=== PATIENT | female | born 1940 | race African-American/Black ===

== ENCOUNTER 2017-08-29 12:45 | Emergency (ER) | payer MEDICARE ==
[~2017-08-29] VITALS: Ht 162.6 cm; Wt 48.0 kg
[~2017-08-29 12:45] MED LIST: ADVAIR; AMLODIPINE; CLARITIN; DIOVAN; FLONASE; LIPITOR; ZOLOFT
[2017-08-29] MEDS ORDERED: ACETAMINOPHEN 325MG TABLET PO STA (15:25)
[2017-08-29 16:41] LABS: BASOPHILS % 0.8 % (0.0-2.0); EOSINOPHILS % 2.3 % (0.0-5.0); HEMATOCRIT. 34.8 % (36.0-48.0); HEMOGLOBIN. 11.7 g/dL (12.0-16.0); LYMPHOCYTES % 19.6 % (20.0-50.0); MEAN CORPUSCULAR HEMOGLOBIN 28.4 pg (28.0-32.0); MEAN CORPUSCULAR VOLUME 84.4 fL (81.0-99.0); MONOCYTES % 10.8 % (2.0-8.0); NEUTROPHILS % 66.5 % (40.0-76.0); PLATELET 294 x1000/uL (130-400); RED BLOOD CELL COUNT 4.12 mill/uL (4.2-5.4); RED CELL DISTRIBUTION WIDTH 14.2 % (11.6-14.6)
[2017-08-29 16:44] LABS: CHLORIDE 97 mEq/L (98-107)
[2017-08-29 16:45] LABS: INR 1.1; PROTHROMBIN TIME 11.6 sec (9.4-11.6)
[2017-08-29 16:53] LABS: CLARITY URINE CLEAR (CLEAR); COLOR URINE YELLOW (YELLOW); KETONES URINE NEGATIVE (NEGATIVE); LEUKOCYTE ESTERASE URINE NEGATIVE (NEGATIVE); NITRITE URINE NEGATIVE (NEGATIVE); OCCULT BLOOD URINE NEGATIVE (NEGATIVE); PROTEIN URINE NEGATIVE (NEGATIVE); SPECIFIC GRAVITY URINE 1.005 (1.005-1.030); UROBILINOGEN URINE 0.2 E.U./dL (0.2-1.0)
[2017-08-29] MEDS ORDERED: POTASSIUM CHLORIDE 20MEQ TABLET SR PO ONE (20:15)
[2017-08-29 21:15] VITALS: BP 146/67
== END 2017-08-29 21:20 | disposition home or self-care (01) ==
LOC: ER 13:41
DX: H92.01 Otalgia, right ear (principal); R51 Headache; R00.1 Bradycardia, unspecified; E87.6 Hypokalemia; J32.9 Chronic sinusitis, unspecified; J45.909 Unspecified asthma, uncomplicated; I10 Essential (primary) hypertension; E78.00 Pure hypercholesterolemia, unspecified
CPT/HCPCS: 36415; 70450; 71045; 80053; 81003; 85025; 85610; 93005; 99285

== ENCOUNTER 2018-03-07 17:37 | Inpatient (IN) | payer MEDICARE ==
[~2018-03-07] VITALS: Ht 162.6 cm; Wt 44.5 kg
[2018-03-07 20:35] LABS: HEMATOCRIT. 36.6 % (36.0-48.0); HEMOGLOBIN. 12.5 g/dL (12.0-16.0); MEAN CORPUSCULAR HEMOGLOBIN 29.3 pg (28.0-32.0); MEAN CORPUSCULAR VOLUME 85.7 fL (81.0-99.0); MEAN PLATELET VOLUME 7.6 fl (7.4-10.4); PLATELET 291 x1000/uL (130-400); RED BLOOD CELL COUNT 4.27 mill/uL (4.2-5.4); RED CELL DISTRIBUTION WIDTH 13.7 % (11.6-14.6)
[2018-03-07 20:37] LABS: CLARITY URINE CLEAR (CLEAR); COLOR URINE YELLOW (YELLOW); KETONES URINE NEGATIVE (NEGATIVE); LEUKOCYTE ESTERASE URINE NEGATIVE (NEGATIVE); NITRITE URINE NEGATIVE (NEGATIVE); OCCULT BLOOD URINE NEGATIVE (NEGATIVE); PROTEIN URINE 2+ (NEGATIVE); SPECIFIC GRAVITY URINE 1.007 (1.005-1.030); UROBILINOGEN URINE 0.2 E.U./dL (0.2-1.0)
[2018-03-07 20:38] LABS: CHLORIDE 85 mEq/L (98-107)
[2018-03-07] MEDS ORDERED: POTASSIUM CHLORIDE 20MEQ/PACKET PO ONE (20:45)
[2018-03-07] MEDS ORDERED: POTASSIUM CHLORIDE INJ 40 MEQ in DEXT 5% WATER 250 ML IV ONE (20:45)
[2018-03-07 21:39] LABS: PLATELET ESTIMATE NORMAL
[2018-03-08 02:08] VITALS: BP 165/74
[2018-03-08] MEDS ORDERED: LOSARTAN POTASSIUM 50 MG TABLET PO SCH (02:45)
[2018-03-08] MEDS ORDERED: DOCUSATE SODIUM 100MG CAPSULE PO PRN (02:45)
[2018-03-08] MEDS ORDERED: ACETAMINOPHEN 325MG TABLET PO PRN (02:45)
[2018-03-08] MEDS ORDERED: CLONIDINE 0.1MG TABLET PO PRN (02:45)
[2018-03-08] MEDS ORDERED: IPRATROPIUM/ALBUTEROL 0.5-3(2.5)MG/3ML NEB INH PRN (02:45)
[2018-03-08] MEDS ORDERED: POTASSIUM CHLORIDE 20MEQ TABLET SR PO SCH (03:00)
[2018-03-08] MEDS ORDERED: BUDESONIDE 0.5MG/2ML NEB HHN SCH (03:00)
[2018-03-08 04:00] VITALS: BP 138/51
[2018-03-08] MEDS ORDERED: POTASSIUM CHLORIDE INJ 40 MEQ in DEXT 5% WATER 250 ML IV SCH (04:00)
[2018-03-08] MEDS: SODIUM CHLORIDE 0.9% INJ 3ML FLUSH IVF SCH ×2 (06:08→13:53)
[2018-03-08 08:00] VITALS: BP 158/65
[2018-03-08] MEDS ORDERED: ENOXAPARIN 40MG/0.4ML SYR SUBCUT SCH (09:00)
[2018-03-08] MEDS ORDERED: AMLODIPINE 10MG TABLET PO SCH (09:00)
[2018-03-08 10:53] LABS: BASOPHILS % 0.2 % (0.0-2.0); HEMATOCRIT. 31.9 % (36.0-48.0); HEMOGLOBIN. 10.9 g/dL (12.0-16.0); LYMPHOCYTES % 10.1 % (20.0-50.0); MEAN CORPUSCULAR VOLUME 85.2 fL (81.0-99.0); MONOCYTES % 14.1 % (2.0-8.0); NEUTROPHILS % 75.6 % (40.0-76.0); PLATELET 271 x1000/uL (130-400); RED BLOOD CELL COUNT 3.74 mill/uL (4.2-5.4)
[2018-03-08 10:58] LABS: CHLORIDE 96 mEq/L (98-107)
[2018-03-08 12:00] VITALS: BP 134/43
[2018-03-08 16:00] VITALS: BP 139/55
[2018-03-08 17:42] VITALS: BP 126/88
[2018-03-08] MEDS ORDERED: AMOX-424 MT (17:48)
[2018-03-08] MEDS ORDERED: FLUT9.9S BOTHNSTRLS (17:48)
[2018-03-08] MEDS ORDERED: MED4 MT (17:49)
[2018-03-08] MEDS ORDERED: ATORVASTATIN CALCIUM 40MG TABLET PO SCH (21:00)
== END 2018-03-08 18:33 | disposition home or self-care (01) | DRG 641 ==
LOC: ER 18:25 → 7WST 21:14 → ENRESERV 03-08 00:08
PROVIDERS: ADMIT Ophthalmology; ATTEND Ophthalmology
DX: E87.6 Hypokalemia (principal); J45.901 Unspecified asthma with (acute) exacerbation; R06.1 Stridor; D64.9 Anemia, unspecified; E78.00 Pure hypercholesterolemia, unspecified; E78.5 Hyperlipidemia, unspecified; R09.82 Postnasal drip; F41.9 Anxiety disorder, unspecified; I10 Essential (primary) hypertension; J32.9 Chronic sinusitis, unspecified; J44.9 Chronic obstructive pulmonary disease, unspecified; T50.2X5A Adverse effect of carbonic-anhydrase inhibitors, benzothiadiazides and other diuretics, initial encounter; Y92.89 Other specified places as the place of occurrence of the external cause; Z85.3 Personal history of malignant neoplasm of breast
CPT/HCPCS: 36415; 71045; 80048; 82533; 83735; 84443; 84484; 93005; 94640; 96365; 99285; J1650; J3480; J7060; J7620; J7626

== ENCOUNTER 2018-03-26 14:39 | Emergency (ER) | payer MEDICARE ==
[~2018-03-26] VITALS: Ht 157.5 cm; Wt 45.0 kg
[~2018-03-26 14:39] MED LIST changes: +AMOX-424 MT; +FLUT9.9S BOTHNSTRLS; +MED4 MT
[2018-03-26 14:59] VITALS: BP 113/74
== END 2018-03-26 21:08 | disposition left against medical advice (07) ==
LOC: ER 16:15
DX: Z53.21 Procedure and treatment not carried out due to patient leaving prior to being seen by health care provider (principal)
CPT/HCPCS: 93005

== ENCOUNTER 2018-04-27 19:30 | Emergency (ER) | payer MEDICARE ==
[~2018-04-27] VITALS: Ht 162.6 cm; Wt 45.0 kg
[2018-04-27 22:51] VITALS: BP 201/88
== END 2018-04-28 02:15 | disposition left against medical advice (07) ==
LOC: ER 21:22
DX: Z53.21 Procedure and treatment not carried out due to patient leaving prior to being seen by health care provider (principal)

== ENCOUNTER 2019-02-08 06:23 | Emergency (ER) | payer MEDICARE ==
[~2019-02-08] VITALS: Ht 167.6 cm; Wt 64.0 kg
[2019-02-08] MEDS ORDERED: IPRATROPIUM BROMIDE (0.02%) 0.5MG/2.5ML NEB HHN STA (07:14)
[2019-02-08] MEDS ORDERED: ALBUTEROL (0.083%) 2.5MG/3ML NEB HHN STA (07:14)
[2019-02-08] MEDS ORDERED: METHYLPREDNISOLONE SOD SUCC 125 MG/2 ML VIAL IV STA (07:14)
[2019-02-08 10:14] LABS: BASOPHILS % 0.9 % (0.0-2.0); EOSINOPHILS % 3.4 % (0.0-5.0); HEMATOCRIT. 29.9 % (36.0-48.0); HEMOGLOBIN. 9.9 g/dL (12.0-16.0); LYMPHOCYTES % 16.5 % (20.0-50.0); MEAN CORPUSCULAR HEMOGLOBIN 27.8 pg (28.0-32.0); MEAN CORPUSCULAR VOLUME 83.7 fL (81.0-99.0); MEAN PLATELET VOLUME 7.6 fl (7.4-10.4); MONOCYTES % 4.5 % (2.0-8.0); NEUTROPHILS % 74.7 % (40.0-76.0); PLATELET 256 x1000/uL (130-400); RED BLOOD CELL COUNT 3.57 mill/uL (4.2-5.4); RED CELL DISTRIBUTION WIDTH 13.8 % (11.6-14.6)
[2019-02-08 10:18] LABS: CHLORIDE 92 mEq/L (98-107)
[2019-02-08 15:00] VITALS: BP 136/62
[2019-02-08] MEDS ORDERED: POTASSIUM CHLORIDE 20MEQ TABLET SR PO NR (16:00)
== END 2019-02-08 15:56 ==
LOC: ER 06:23 → CANBEDREQ 12:54 → ER 15:56
DX: J45.901 Unspecified asthma with (acute) exacerbation (principal); I10 Essential (primary) hypertension; E78.5 Hyperlipidemia, unspecified; Z85.3 Personal history of malignant neoplasm of breast; Z79.899 Other long term (current) drug therapy
CPT/HCPCS: 36415; 71045; 80053; 83880; 84484; 85025; 93005; 94644; 96374; 99285; J2930; J7611

== ENCOUNTER 2022-07-29 07:00 | Inpatient (IN) | payer MEDICARE ==
[~2022-07-29] VITALS: Ht 160 cm; Wt 44.2 kg
[2022-07-29 09:01] LABS: CLARITY URINE CLEAR (CLEAR); COLOR URINE YELLOW (YELLOW); KETONES URINE NEGATIVE (NEGATIVE); LEUKOCYTE ESTERASE URINE NEGATIVE (NEGATIVE); NITRITE URINE NEGATIVE (NEGATIVE); OCCULT BLOOD URINE NEGATIVE (NEGATIVE); PH URINE 7.5 (4.5-8.0); PROTEIN URINE 2+ (NEGATIVE); SPECIFIC GRAVITY URINE 1.007 (1.005-1.030); UROBILINOGEN URINE 0.2 E.U./dL (0.2-1.0)
[2022-07-29 09:24] LABS: CHLORIDE 106 mEq/L (98-107)
[2022-07-29 09:26] LABS: BASOPHILS % 0.2 % (0.0-2.0); EOSINOPHILS % 3.9 % (0.0-5.0); HEMATOCRIT. 35.9 % (36.0-48.0); HEMOGLOBIN. 12.1 g/dL (12.0-16.0); LYMPHOCYTES % 17.4 % (20.0-50.0); MEAN CORPUSCULAR HEMOGLOBIN 28.7 pg (28.0-32.0); MEAN CORPUSCULAR VOLUME 85.4 fL (81.0-99.0); MEAN PLATELET VOLUME 8.4 fl (7.4-10.4); MONOCYTES % 8.8 % (2.0-8.0); NEUTROPHILS % 69.7 % (40.0-76.0); PLATELET 313 x1000/uL (130-400); RED CELL DISTRIBUTION WIDTH 15.5 % (11.6-14.6)
[2022-07-29] MEDS ORDERED: HYDRALAZINE 20MG/ML VIAL IV ONE (15:45)
[2022-07-29] MEDS ORDERED: CLONIDINE 0.1MG TABLET PO PRN (18:30)
[2022-07-29] MEDS ORDERED: ACETAMINOPHEN 325MG TABLET PO PRN (18:30)
[2022-07-29] MEDS ORDERED: NA PHOS,M-B/NA PHOS,DI-BA ENEMA 118ML PR PRN (18:30)
[2022-07-29] MEDS ORDERED: BUDESONIDE 0.5MG/2ML NEB HHN SCH (18:30)
[2022-07-29] MEDS ORDERED: MAGNESIUM/ALUMINUM HYDROXIDE/SIMETHICONE 30ML UDC PO PRN (18:30)
[2022-07-29] MEDS ORDERED: ONDANSETRON HCL 4MG/2ML INJ IV PRN (18:30)
[2022-07-29] MEDS ORDERED: IPRATROPIUM/ALBUTEROL 0.5-3(2.5)MG/3ML NEB HHN PRN (18:30)
[2022-07-29] MEDS ORDERED: DOCUSATE SODIUM 100MG CAPSULE PO PRN (18:30)
[2022-07-29] MEDS: AMLODIPINE 5MG TABLET PO SCH (18:48)
[2022-07-29] MEDS ORDERED: ENOXAPARIN 40MG/0.4ML SYR SUBCUT SCH (21:00)
[2022-07-30 03:25] VITALS: BP 153/65; PULSE 60; RESP 20; TEMP 95.5
[2022-07-30 03:30] VITALS: BP_SYST 150; BP_SYST 153; BP_SYST 182; BP_DIAS 65; BP_DIAS 71; BP_DIAS 72; PULSE 60; RESP 20; TEMP 95.5
[2022-07-30] MEDS ORDERED: FLUT1BLS10 IH (04:14)
[2022-07-30] MEDS ORDERED: CLON0.5T4 PO (04:14)
[2022-07-30] MEDS ORDERED: UMEC62.5 IH (04:14)
[2022-07-30] MEDS ORDERED: CLON1PAT10 TP (04:14)
[2022-07-30] MEDS ORDERED: AMLO10TA80 PO (04:14)
[2022-07-30] MEDS ORDERED: TC1U15 TP (04:14)
[2022-07-30] MEDS ORDERED: OLME40TA18 PO (04:14)
[2022-07-30] MEDS ORDERED: ATOR10TA69 PO (04:14)
[2022-07-30] MEDS ORDERED: CLOB15OI3 TP (04:14)
[2022-07-30 07:10] LABS: BASOPHILS % 0.4 % (0.0-2.0); HEMATOCRIT. 36.1 % (36.0-48.0); HEMOGLOBIN. 12.1 g/dL (12.0-16.0); LYMPHOCYTES % 17.8 % (20.0-50.0); MEAN CORPUSCULAR HEMOGLOBIN 28.8 pg (28.0-32.0); MEAN CORPUSCULAR VOLUME 85.9 fL (81.0-99.0); MEAN PLATELET VOLUME 7.9 fl (7.4-10.4); MONOCYTES % 9.9 % (2.0-8.0); NEUTROPHILS % 69.9 % (40.0-76.0); PLATELET 300 x1000/uL (130-400); RED CELL DISTRIBUTION WIDTH 15.6 % (11.6-14.6)
[2022-07-30 07:41] LABS: CHLORIDE 106 mEq/L (98-107)
[2022-07-30 08:03] VITALS: BP_SYST 118; BP_SYST 127; BP_SYST 146; BP_DIAS 53; BP_DIAS 70; BP_DIAS 71; PULSE 60; RESP 18; TEMP 96.7
[2022-07-30 08:13] LABS: FOLIC ACID (FOLATE) SERUM >20 ng/mL ng/mL (>5.38); VITAMIN B12 SERUM 120 pg/mL (211-911)
[2022-07-30] MEDS: AMLODIPINE 5MG TABLET PO SCH (08:34)
[2022-07-30 12:00] VITALS: BP_SYST 147; BP_SYST 182; BP_DIAS 69; BP_DIAS 71; PULSE 60; RESP 18; TEMP 97.6
[2022-07-30] MEDS ORDERED: POTASSIUM CHLORIDE 20MEQ/PACKET PO NR (12:30)
[2022-07-30] MEDS ORDERED: CYANOCOBALAMIN 1000MCG/ML VIAL IM NR (15:15)
[2022-07-30 16:00] VITALS: BP 125/62; PULSE 66; RESP 18; TEMP 98.6
[2022-07-30 16:59] VITALS: BP 125/62; PULSE 66; TEMP 98.6; O2SAT 98
== END 2022-07-30 18:00 | disposition home or self-care (01) | DRG 74 ==
LOC: ER 07:00 → MICUSO 17:37 → EDBEDREQ 17:37 → EDBEDREQSVC 19:44 → EDBEDREQ 21:34 → EDBEDREQTM 21:34 → 7EST 07-30 04:53
PROVIDERS: ADMIT Internal Medicine Pulmonary Disease; ATTEND Internal Medicine Pulmonary Disease
DX: G90.8 Other disorders of autonomic nervous system (principal); G93.40 Encephalopathy, unspecified; F03.90 Unspecified dementia, unspecified severity, without behavioral disturbance, psychotic disturbance, mood disturbance, and anxiety; E78.00 Pure hypercholesterolemia, unspecified; I10 Essential (primary) hypertension; J44.9 Chronic obstructive pulmonary disease, unspecified; E53.8 Deficiency of other specified B group vitamins; Z95.0 Presence of cardiac pacemaker
CPT/HCPCS: 36415; 71045; 80048; 80053; 81003; 82607; 82746; 83605; 84145; 84443; 84484; 85025; 93005; 97162; 99285; J0360; J1650; J3420